=== PATIENT | male | born 1995 | race Hispanic/Latino ===

== ENCOUNTER 2018-06-02 23:54 | Emergency (ER) | payer OTHER ==
[~2018-06-02] VITALS: Ht 172.7 cm; Wt 99.8 kg
[2018-06-03] MEDS ORDERED: NAPROXEN500 MG PO (00:18)
[2018-06-03] MEDS ORDERED: CYCLOBENZAPRINE10 MG PO (00:18)
== END 2018-06-03 00:32 | disposition home or self-care (01) ==
LOC: ED 23:54
DX: M54.42 Lumbago with sciatica, left side (principal)
CPT/HCPCS: 99283